=== PATIENT | female | born 2000 | race African-American/Black ===

== ENCOUNTER 2023-11-10 01:19 | Emergency (ER) | payer MEDICAID, OTHER ==
[~2023-11-10] VITALS: Ht 170.2 cm; Wt 91.0 kg
[~2023-11-10 01:19] MED LIST: ALBU2.5V13
[2023-11-10 01:27] VITALS: BP 136/93; TEMP 98.6
[2023-11-10] MEDS ORDERED: ALBUTEROL (0.083%) 2.5MG/3ML NEB HHN STA (02:45)
[2023-11-10] MEDS: ACETAMINOPHEN 325MG TABLET PO ONE (03:08)
[2023-11-10] MEDS: GUAIFENESIN 600MG ER TABLET PO ONE (03:08)
[2023-11-10 03:12] VITALS: PULSE 90; RESP 16; O2SAT 99
[2023-11-10] MEDS ORDERED: GUAI600T26 MT (04:50)
[2023-11-10] MEDS ORDERED: ALBU6.7H15 INH (04:50)
[2023-11-10] MEDS ORDERED: ACET-2708 MT (04:50)
[2023-11-10] MEDS ORDERED: P20 MT (04:50)
[2023-11-10] MEDS ORDERED: KETOROLAC 60MG/2ML VIAL IM ONE (05:00)
== END 2023-11-10 05:18 | disposition home or self-care (01) ==
LOC: ER 02:48
DX: B34.9 Viral infection, unspecified (principal); J45.909 Unspecified asthma, uncomplicated; Z00.00 Encounter for general adult medical examination without abnormal findings; Z20.822 Contact with and (suspected) exposure to COVID-19
CPT/HCPCS: 81025; 87804 ×2; 94640; 99283; 87426; J1885; Z7610 ×3

== ENCOUNTER 2024-10-11 11:53 | Emergency (ER) | payer MEDICAID ==
[~2024-10-11] VITALS: Ht 170.2 cm; Wt 90.0 kg
[~2024-10-11 11:53] MED LIST changes: +ACET-2708 MT; +ALBU6.7H15 INH; +GUAI600T26 MT; +P20 MT
[2024-10-11 11:56] VITALS: O2SAT 99
[2024-10-11] MEDS: ACETAMINOPHEN 325MG TABLET PO ONE (12:40)
[2024-10-11] MEDS: METOCLOPRAMIDE HCL 10MG TABLET PO ONE (12:40)
[2024-10-11] MEDS: KETOROLAC 15MG/ML VIAL IM ONE (12:40)
[2024-10-11] MEDS ORDERED: IBUP-2029 MT (12:54)
[2024-10-11 13:25] VITALS: BP 115/84; PULSE 87; RESP 20; TEMP 36.6; O2SAT 99
== END 2024-10-11 13:25 | disposition home or self-care (01) ==
LOC: ER 11:53
DX: H92.01 Otalgia, right ear (principal); R51.9 Headache, unspecified; J45.909 Unspecified asthma, uncomplicated; Z90.710 Acquired absence of both cervix and uterus; Z79.2 Long term (current) use of antibiotics
CPT/HCPCS: 96372; 99283; J8597; J1885; Z7610